=== PATIENT | male | born 1970 | race Caucasian/White ===

== ENCOUNTER 2020-06-06 12:12 | Emergency (ER) | payer OTHER ==
[~2020-06-06] VITALS: Ht 175.3 cm; Wt 89.1 kg
[2020-06-06] MEDS ORDERED: LORazepam 2 MG/ML VIAL IV STA (12:20)
[2020-06-06] MEDS ORDERED: LORazepam 2 MG/ML VIAL As Ordered ONE (12:28)
[2020-06-06] MEDS ORDERED: MULTIVITAMIN -ADULT INJECTION 10 ML, THIAMINE INJection 100 MG, FOLIC ACID 1 MG in NS 1... IV ONE (12:45)
[2020-06-06] MEDS ORDERED: OXAZEPAM 15 MG CAP PO ONE (12:45)
[2020-06-06] MEDS ORDERED: NS 1,000 ML IV ONE (12:45)
[2020-06-06 12:53] LABS: BASO % 0.9 % (0.0-1.0); EOS % 0.9 % (0.0-3.0); HEMATOCRIT 45.1 % (42.0-52.0); HEMOGLOBIN 15.1 g/dl (13.5-17.5); LYMPH # 0.7 10^3/uL (1.5-5.0); LYMPH % 19.2 % (24.0-44.0); MEAN CORPUSCULAR HEMOGLOBIN 31.1 pg (27.0-33.0); MEAN CORPUSCULAR HGB CONC 33.5 g/dl (32.0-36.5); MEAN CORPUSCULAR VOLUME 92.8 fl (80.0-96.0); MONO # 0.3 10^3/uL (0.0-0.8); MONO % 8.7 % (0.0-5.0); NEUTROPHILS # 2.4 10^3/uL (1.5-8.5); RED BLOOD COUNT 4.86 10^6/uL (4.30-6.10); WHITE BLOOD COUNT 3.4 10^3/uL (4.0-10.0)
[2020-06-06 13:01] LABS: INR 0.87
[2020-06-06 13:03] LABS: PLATELET COUNT, AUTOMATED 81 10^3/uL (150-450)
[2020-06-06 13:21] LABS: ALBUMIN 3.4 GM/DL (3.2-5.2); ALT/SGPT 207 U/L (12-78); BILIRUBIN,DIRECT 0.3 MG/DL (0.0-0.2); BILIRUBIN,TOTAL 0.4 MG/DL (0.2-1.0); BLOOD UREA NITROGEN 5 MG/DL (7-18); CALCIUM LEVEL 9.1 MG/DL (8.5-10.1); CARBON DIOXIDE LEVEL 25 MEQ/L (21-32); CHLORIDE LEVEL 103 MEQ/L (98-107); CREATININE FOR GFR 0.67 MG/DL (0.70-1.30); GLOMERULAR FILTRATION RATE > 60.0 (>60); GLUCOSE, FASTING 101 MG/DL (70-100); MAGNESIUM LEVEL 1.5 MG/DL (1.8-2.4); POTASSIUM SERUM 3.9 MEQ/L (3.5-5.1); SODIUM LEVEL 139 MEQ/L (136-145); TOTAL PROTEIN 6.9 GM/DL (6.4-8.2)
[2020-06-06] MEDS ORDERED: MAG SULF 1GM/100ML (MAG RUN) 1 GM in IV 1 EA IV ONE (13:30)
[2020-06-06 15:00] VITALS: BP 147/83
[2020-06-06] MEDS ORDERED: OXAZ30CA2 PO ×2 (15:03→15:20)
[2020-06-06] MEDS ORDERED: SLOWTAB2 PO (15:04)
== END 2020-06-06 15:27 | disposition home or self-care (01) ==
LOC: M ED 12:12
DX: F10.239 Alcohol dependence with withdrawal, unspecified (principal); E83.42 Hypomagnesemia
CPT/HCPCS: 36415; 80048; 80076; 83735; 85025; 85049; 85055; 85610; 96361; 96365; 96368; 96375; 99284; J2060; J3411; J3475

== ENCOUNTER 2021-02-09 10:37 | Inpatient (IN) | payer OTHER ==
[~2021-02-09] VITALS: Ht 170.2 cm; Wt 82.0 kg
[~2021-02-09 10:37] MED LIST: OXAZ30CA2 PO; SLOWTAB2 PO
[2021-02-09 11:49] LABS: BASO # 0.1 10^3/uL (0.0-0.2); BASO % 0.8 % (0.0-1.0); EOS % 0.2 % (0.0-3.0); HEMATOCRIT 45.5 % (42.0-52.0); HEMOGLOBIN 15.3 g/dl (13.5-17.5); LYMPH # 0.6 10^3/uL (1.5-5.0); LYMPH % 8.7 % (24.0-44.0); MEAN CORPUSCULAR HEMOGLOBIN 31.9 pg (27.0-33.0); MEAN CORPUSCULAR HGB CONC 33.6 g/dl (32.0-36.5); MEAN CORPUSCULAR VOLUME 94.8 fl (80.0-96.0); MONO # 0.5 10^3/uL (0.0-0.8); MONO % 7.9 % (2.0-8.0); NEUTROPHILS # 5.3 10^3/uL (1.5-8.5); NEUTROPHILS % 81.8 % (36.0-66.0); WHITE BLOOD COUNT 6.5 10^3/uL (4.0-10.0)
[2021-02-09 11:51] LABS: PLATELET COUNT, AUTOMATED 97 10^3/uL (150-450)
[2021-02-09 12:09] LABS: AMPHETAMINES LEVEL URINE NEGATIVE (NEGATIVE); BARBITURATES URINE NEGATIVE (NEGATIVE); BENZODIAZEPINES URINE NEGATIVE (NEGATIVE); CANNABINOIDS URINE NEGATIVE (NEGATIVE); COCAINE METABOLITE URINE NEGATIVE (NEGATIVE); METHADONE URINE NEGATIVE (NEGATIVE); OPIATES URINE NEGATIVE (NEGATIVE); PHENCYCLIDINE URINE NEGATIVE (NEGATIVE)
[2021-02-09 12:11] LABS: ALBUMIN 3.9 GM/DL (3.2-5.2); ALT/SGPT 127 U/L (12-78); BILIRUBIN,DIRECT 0.2 MG/DL (0.0-0.2); BILIRUBIN,TOTAL 0.6 MG/DL (0.2-1.0); BLOOD UREA NITROGEN 7 MG/DL (7-18); CALCIUM LEVEL 8.5 MG/DL (8.5-10.1); CARBON DIOXIDE LEVEL 25 MEQ/L (21-32); CHLORIDE LEVEL 104 MEQ/L (98-107); CREATININE FOR GFR 0.66 MG/DL (0.70-1.30); ETHYL ALCOHOL (ETHANOL) 0.084 % (0.000-0.010); GLOMERULAR FILTRATION RATE > 60.0 (>60); GLUCOSE, FASTING 96 MG/DL (70-100); POTASSIUM SERUM 3.9 MEQ/L (3.5-5.1); SODIUM LEVEL 137 MEQ/L (136-145); TOTAL PROTEIN 7.5 GM/DL (6.4-8.2)
[2021-02-09] MEDS ORDERED: NS 1,000 ML IV ONE (12:35)
[2021-02-09] MEDS ORDERED: OXAZEPAM 15 MG CAP PO ONE (12:35)
[2021-02-09] MEDS ORDERED: THIAMINE 100 MG TAB PO ONE (12:35)
[2021-02-09] MEDS ORDERED: LORazepam 2 MG/ML VIAL IV STA ×2 (15:16→18:09)
[2021-02-09 16:36] LABS: RSV AMPLIFICATION NEGATIVE (NEGATIVE)
[2021-02-09] MEDS ORDERED: LORazepam 2 MG TAB PO PRN (18:10)
[2021-02-09] MEDS ORDERED: MOM 30ML SUSPENSION UDC PO PRN (18:10)
[2021-02-09] MEDS ORDERED: ACETAMINOPHEN TAB 650MG DOSE (2X325MG) PO PRN (18:10)
[2021-02-09] MEDS ORDERED: MAALOX 30 ML SUSP *UDC PO PRN (18:10)
[2021-02-09] MEDS ORDERED: hydrALAZINE 20MG/ML 1ML VIAL (J0360 PER 20MG) IV STA (18:13)
--- NOTE | 2021-02-09 18:13 | HPEPDOC ---
[facility] Medical History & Physical Date of Admission Feb 09, 2021 Date of Service: Feb 09, 2021 History and Physical CHIEF COMPLAINT: Alcohol withdrawal HISTORY OF PRESENT ILLNESS: 42-year-old male with a history of alcohol use disorder, presents to [facility] ER with complaints of anxiety, tremulousness after stopping drinking for the past day. Patient reports typically drinking approximately 6-8 beers with an unspecified amount of hard liquor for the past 8-9 years. Patient has been trying to reduce the amount of alcohol he consumes over the past 5 days, checking approximately 1 can of beer per day as he had an upcoming court date today. However, patient developed significant tremulousness was concern for alcohol withdrawal. I decided to seek help in the emergency room. He reports a prior episode of withdrawal, which resulted in a seizure. He denies visual hallucination, auditory hallucination. He denies suicidal or h omicidal ideations. Patient received a dose of Ativan IV in the ER. Patient will be admitted to hospitalist service for management of acute alcohol withdrawal. PAST MEDICAL HISTORY: ETOH use disorder SOCIAL HISTORY: Etoh use disorder Denies smoking, denies illicit drug use FAMILY HISTORY: Mother - HTN ALLERGIES: Please see below. REVIEW OF SYSTEMS: 10 point ROS was conducted, relevant findings are noted in the HPI HOME MEDICATIONS: Please see below. PHYSICAL EXAMINATION: VITAL SIGNS: please see below General: NAD, comfortable HEENT: PERRLA, EOMI, sclerae clear Neck: supple, normal ROM, no JVD Respiratory: lungs CTAB, no wheeze, no rales, no crackles CVS: RRR, normal S1, S2, no murmurs Abdo: soft, no masses, no hepatosplenomegaly, BS+, no rebound tenderness Extremities: no edema, pulses 2+ MSK: no joint deformities, normal ROM Neuro: no focal neuro deficits, moving all 4 extremities, CN2-12 intact. Strength 5/5 in all 4 extremities. No nystagmus. Psych: calm, cooperative, AAO x 3, obviously tremulous and anxious LABORATORY DATA: See below. MICROBIOLOGY: Please see below. ASSESSMENT: 50-year-old male with a history of alcohol use disorder, presenting with acute alcohol withdrawal. Patient placed on Cipro protocol, admitted to hospitalist service for management of alcohol withdrawal. PLAN: #Acute etoh withdrawal - drinks 6-8 alcoholic drinks per day - previous hx of withdrawal, one episode of seizures - admit to M/S. Tele. - [facility] protocol - start patient on serax 20 mg TID PO - alcohol cessation resources - c/w thiamine, folate, b12 - seizure precautions. - start NS 125 cc/hr #Transaminitis - AST 195, ALT 127 - will repeat in AM, suspect 2/2 heavy etoh consumption #HTN - takes no meds - will start on amlodipine 5 mg daily - suspect BP elevated in part due to acute etoh withdrawal DVT ppx: heparin 5000 units q8h Vital Signs Vital Signs Date Time Temp Pulse Resp B/P (MAP) Pulse Ox O2 Delivery O2 Flow Rate FiO2 02/09/21 17:45 69 132/88 (103) 96 Room Air 02/09/21 16:30 18 02/09/21 10:47 99.0 Laboratory Data Labs 24H Laboratory Tests 2 02/09/21 11:18: Immature Granulocyte % (Auto) 0.6, Neutrophils (%) (Auto) 81.8H, Lymphocytes (%) (Auto) 8.7L, Monocytes (%) (Auto) 7.9, Eosinophils (%) (Auto) 0.2, Basophils (%) (Auto) 0.8, Neutrophils # (Auto) 5.3, Lymphocytes # (Auto) 0.6L, Monocytes # (Auto) 0.5, Eosinophils # (Auto) 0.0, Basophils # (Auto) 0.1, Nucleated Red Blood Cells % (auto) 0.0, Immature Platelet Fraction 3.8, Anion Gap 8, Glomerular Filtration Rate > 60.0, Calcium Level 8.5, Total Bilirubin 0.6, Direct Bilirubin 0.2, Aspartate Amino Transf (AST/SGOT) 195H, Alanine Aminotransferase (ALT/SGPT) 127H, Alkaline Phosphatase 103, Total Protein 7.5, Albumin 3.9, Albumin/Globulin Ratio 1.1, Urine Opiates Screen NEGATIVE, Urine Methadone Screen NEGATIVE, Urine Barbiturates Screen NEGATIVE, Urine Phencyclidine Screen NEGATIVE, Urine Amphetamines Screen NEGATIVE, Urine Benzodiazepines Screen NEGATIVE, Urine Cocaine Metabolite Screen NEGATIVE, Urine Cannabinoids Screen NEGATIVE, Ethyl Alcohol Level 0.084H 02/09/21 15:24: Coronavirus (COVID-19)(PCR) NEGATIVE, Influenza Type A (RT-PCR) NEGATIVE, In fluenza Type B (RT-PCR) NEGATIVE, Respiratory Syncytial Virus (PCR) NEGATIVE CBC/BMP Laboratory Tests 02/09/21 11:18 Home Medications No Active Prescriptions or Reported Meds Allergies Coded Allergies: No Known Allergies (Unverified , 06/06/20) KARL PEARL MD Feb 09, 2021 18:13
[2021-02-09] MEDS ORDERED: THIAMINE 100 MG TAB PO SCH (19:00)
[2021-02-09 22:05] VITALS: BP 131/76
[2021-02-09] MEDS ORDERED: SLF 3 ML SYR IV PRN (22:35)
[2021-02-09] MEDS: OXAZEPAM 10 MG CAP PO SCH (22:54)
[2021-02-09] MEDS: HEPARIN SOD (PORCINE) 5000UNITS/ML 1ML VIAL/SYRINGE SC SCH (22:55)
[2021-02-09] MEDS: THIAMINE 100 MG TAB PO SCH (22:55)
[2021-02-09] MEDS: DOCUSATE SODIUM 100MG CAPSULE PO SCH (22:55)
[2021-02-09] MEDS: FOLIC ACID 1 MG TAB PO SCH (22:59)
[2021-02-09] MEDS: MULTIVITAMINS/MINERALS THERAP 1 TAB PO SCH (23:00)
[2021-02-10] VITALS: BP_SYST 131; BP_SYST 138; BP_DIAS 75; BP_DIAS 76
[2021-02-10] MEDS ORDERED: NICOTINE 21MG/24HR 1 EA TRANSDERMAL TD PRN (00:20)
[2021-02-10 04:00] VITALS: BP_SYST 131; BP_SYST 140; BP_DIAS 76; BP_DIAS 79
[2021-02-10] MEDS ORDERED: SLF 3 ML SYR IV SCH (06:00)
[2021-02-10 06:24] LABS: BASO % 0.8 % (0.0-1.0); EOS # 0.1 10^3/uL (0.0-0.5); EOS % 1.8 % (0.0-3.0); HEMATOCRIT 45.1 % (42.0-52.0); LYMPH % 20.2 % (24.0-44.0); MEAN CORPUSCULAR HGB CONC 33.3 g/dl (32.0-36.5); MEAN CORPUSCULAR VOLUME 96.2 fl (80.0-96.0); MONO # 0.4 10^3/uL (0.0-0.8); MONO % 8.6 % (2.0-8.0); NEUTROPHILS # 3.4 10^3/uL (1.5-8.5); RED BLOOD COUNT 4.69 10^6/uL (4.30-6.10)
[2021-02-10] MEDS: HEPARIN SOD (PORCINE) 5000UNITS/ML 1ML VIAL/SYRINGE SC SCH (06:34)
[2021-02-10] MEDS: OXAZEPAM 10 MG CAP PO SCH (06:34)
[2021-02-10 06:59] LABS: ALT/SGPT 87 U/L (12-78); BLOOD UREA NITROGEN 7 MG/DL (7-18); CALCIUM LEVEL 8.3 MG/DL (8.5-10.1); CARBON DIOXIDE LEVEL 24 MEQ/L (21-32); CHLORIDE LEVEL 108 MEQ/L (98-107); CREATININE FOR GFR 0.54 MG/DL (0.70-1.30); GLOMERULAR FILTRATION RATE > 60.0 (>60); GLUCOSE, FASTING 74 MG/DL (70-100); MAGNESIUM LEVEL 2.2 MG/DL (1.8-2.4); SODIUM LEVEL 139 MEQ/L (136-145); TOTAL PROTEIN 6.6 GM/DL (6.4-8.2)
[2021-02-10 07:39] VITALS: BP 156/80
[2021-02-10 07:49] LABS: PLATELET COUNT, AUTOMATED 75 10^3/uL (150-450)
[2021-02-10] MEDS: THIAMINE 100 MG TAB PO SCH (09:09)
[2021-02-10] MEDS: DOCUSATE SODIUM 100MG CAPSULE PO SCH (09:09)
[2021-02-10] MEDS: MULTIVITAMINS/MINERALS THERAP 1 TAB PO SCH (09:09)
[2021-02-10] MEDS: FOLIC ACID 1 MG TAB PO SCH (09:09)
--- NOTE | 2021-02-10 11:26 | DS.PDOC ---
Discharge Summary General Date of Admission Feb 09, 2021 at 18:12 Date of Discharge 02/10/21 Discharge Summary PROCEDURES PERFORMED DURING STAY: [None]. ADMITTING DIAGNOSES: 1. . DISCHARGE DIAGNOSES: 1. . COMPLICATIONS/CHIEF COMPLAINT: Alcohol Withdrawl. HISTORY OF PRESENT ILLNESS: . HOSPITAL COURSE: . DISCHARGE MEDICATIONS: Please see below. ALLERGIES: Please see below. PHYSICAL EXAMINATION ON DISCHARGE: VITAL SIGNS: Please see below. GENERAL: HEENT: NECK: CARDIOVASCULAR EXAMINATION: RESPIRATORY EXAMINATION: ABDOMINAL EXAMINATION: EXTREMITIES: SKIN: NEUROLOGICAL EXAMINATION: PSYCHIATRIC EXAMINATION: LABORATORY DATA: Please see below. IMAGING: PROGNOSIS: ACTIVITY: [As tolerated]. DIET: DISCHARGE PLAN: DISPOSITION: . DISCHARGE INSTRUCTIONS: 1. . ITEMS TO FOLLOWUP ON ON OUTPATIENT: 1. . DISCHARGE CONDITION: [Stable]. TIME SPENT ON DISCHARGE: Greater than minutes. Vital Signs/I&Os Vital Signs Date Time Temp Pulse Resp B/P (MAP) Pulse Ox O2 Delivery O2 Flow Rate FiO2 02/10/21 07:39 99.3 60 18 156/80 (105) 94 Room Air I&O- Last 24 Hours up to 6 AM 02/10/21 06:00 Intake Total 1000 ml Balance 1000 ml Laboratory Data Labs 24H Laboratory Tests 2 02/09/21 15:24: Coronavirus (COVID-19)(PCR) NEGATIVE, Influenza Type A (RT-PCR) NEGATIVE, Influenza Type B (RT-PCR) NEGATIVE, Respiratory Syncytial Virus (PCR) NEGATIVE 02/10/21 05:53: Immature Granulocyte % (Auto) 0.6, Neutrophils (%) (Auto) 68.0H, Lymphocytes (%) (Auto) 20.2L, Monocytes (%) (Auto) 8.6H, Eosinophils (%) (Auto) 1.8, Basophils (%) (Auto) 0.8, Neutrophils # (Auto) 3.4, Lymphocytes # (Auto) 1.0L, Monocytes # (Auto) 0.4, Eosinophils # (Auto) 0.1, Basophils # (Auto) 0.0, Nucleated Red Blood Cells % (auto) 0.0, Anion Gap 7L, Glomerular Filtration Rate > 60.0, Calcium Level 8.3L, Magnesium Level 2.2, Total Bilirubin 1.0#, Aspartate Amino Transf (AST/SGOT) 105H, Alanine Aminotransferase (ALT/SGPT) 87H, Alkaline Phosphatase 80, Total Protein 6.6, Albumin 3.0#L, Albumin/Globulin Ratio 0.8 CBC/BMP Laboratory Tests 02/10/21 05:53 Discharge Medications No Active Prescriptions or Reported Meds Allergies Coded Allergies: No Known Allergies (Unverified , 06/06/20) KARL PEARL MD Feb 10, 2021 11:26
[2021-02-10] MEDS ORDERED: amLODIPine 5 MG TAB PO SCH (11:30)
[2021-02-10 11:34] VITALS: BP 130/80
[2021-02-10] MEDS ORDERED: FOLI1TAB11 PO (11:55)
[2021-02-10] MEDS ORDERED: THIA100TA PO (11:55)
[2021-02-10] MEDS ORDERED: VITMTA PO (11:55)
[2021-02-10] MEDS ORDERED: OXAZ10CA3 PO (11:55)
[2021-02-10] MEDS ORDERED: AMLO1TAB24 PO (11:55)
[2021-02-10 11:59] VITALS: BP 130/80
== END 2021-02-10 12:55 | disposition home or self-care (01) | DRG 775 ==
LOC: M ED 10:37 → M ED INP 18:09 → OBSVTOIN 18:12 → ENRESERV 18:45 → M PCU 21:55
PROVIDERS: ADMIT Family Medicine; ATTEND Family Medicine
DX: F10.239 Alcohol dependence with withdrawal, unspecified (principal); I10 Essential (primary) hypertension; R74.01 Elevation of levels of liver transaminase levels

== ENCOUNTER → 2022-04-12 | Outpatient (CLI) | payer OTHER ==
[~2022-04-12] MED LIST changes: +AMLO1TAB24 PO; +FOLI1TAB11 PO; +OXAZ10CA3 PO; +THIA100TA PO; +VITMTA PO
== END ==
LOC: M OUTALCOH 09:04
PROVIDERS: ATTEND Psychiatry & Neurology Psychiatry
DX: Z02.9 Encounter for administrative examinations, unspecified (principal)

== ENCOUNTER 2022-05-02 10:20 | Outpatient (RCR) | payer OTHER | END 2022-05-04 | LOC: M OUTALCOH 10:20 | PROVIDERS: ATTEND Psychiatry & Neurology Psychiatry | DX: F10.20 Alcohol dependence, uncomplicated (principal); Z72.0 Tobacco use ==

== ENCOUNTER 2022-05-30 12:39 | Outpatient (RCR) | payer OTHER | END 2022-06-03 | LOC: M OUTALCOH 12:39 | PROVIDERS: ATTEND Psychiatry & Neurology Psychiatry | DX: F10.20 Alcohol dependence, uncomplicated (principal); Z72.0 Tobacco use ==

== ENCOUNTER 2022-06-09 13:57 | Outpatient (RCR) | payer OTHER | END 2022-07-04 | LOC: M OUTALCOH 13:57 | PROVIDERS: ATTEND Psychiatry & Neurology Psychiatry | DX: F10.20 Alcohol dependence, uncomplicated (principal); Z72.0 Tobacco use ==

== ENCOUNTER → 2022-07-04 | Outpatient (RCR) | payer OTHER | LOC: M OUTALCOH 06-13 12:32 | PROVIDERS: ATTEND Psychiatry & Neurology Psychiatry | DX: F10.20 Alcohol dependence, uncomplicated (principal); Z72.0 Tobacco use ==

== ENCOUNTER 2022-07-18 11:01 | Outpatient (RCR) | payer OTHER | END 2022-08-03 | LOC: M OUTALCOH 11:01 | PROVIDERS: ATTEND Psychiatry & Neurology Psychiatry | DX: F10.20 Alcohol dependence, uncomplicated (principal); Z72.0 Tobacco use ==

== ENCOUNTER 2022-08-22 13:58 | Outpatient (RCR) | payer OTHER | END 2022-09-03 | LOC: M OUTALCOH 13:58 | PROVIDERS: ATTEND Psychiatry & Neurology Psychiatry | DX: F10.20 Alcohol dependence, uncomplicated (principal); Z72.0 Tobacco use ==

== ENCOUNTER 2022-10-03 16:00 | Outpatient (RCR) | payer OTHER | END 2022-10-04 | LOC: M OUTALCOH 16:00 | PROVIDERS: ATTEND Psychiatry & Neurology Psychiatry | DX: F10.20 Alcohol dependence, uncomplicated (principal); Z72.0 Tobacco use ==

== ENCOUNTER → 2024-01-17 | Outpatient (CLI) | payer OTHER | LOC: M OUTALCOH 08:31 | PROVIDERS: ATTEND Psychiatry & Neurology Psychiatry | DX: F10.20 Alcohol dependence, uncomplicated (principal); F17.200 Nicotine dependence, unspecified, uncomplicated ==

== ENCOUNTER → 2024-02-02 | Outpatient (RCR) | payer OTHER | LOC: M OUTALCOH 01-26 12:51 | PROVIDERS: ATTEND Psychiatry & Neurology Psychiatry | DX: F10.20 Alcohol dependence, uncomplicated (principal); F17.200 Nicotine dependence, unspecified, uncomplicated ==

== ENCOUNTER 2024-03-01 15:00 | Outpatient (RCR) | payer OTHER | END 2024-03-03 | LOC: M OUTALCOH 15:00 | PROVIDERS: ATTEND Psychiatry & Neurology Psychiatry | DX: F10.20 Alcohol dependence, uncomplicated (principal); F17.200 Nicotine dependence, unspecified, uncomplicated ==

== ENCOUNTER → 2024-04-03 | Outpatient (RCR) | payer OTHER | LOC: M OUTALCOH 03-06 14:47 | PROVIDERS: ATTEND Psychiatry & Neurology Psychiatry | DX: F10.20 Alcohol dependence, uncomplicated (principal); F17.200 Nicotine dependence, unspecified, uncomplicated ==

== ENCOUNTER 2024-04-29 14:51 | Outpatient (RCR) | payer OTHER | END 2024-05-04 | LOC: M OUTALCOH 14:51 | PROVIDERS: ATTEND Psychiatry & Neurology Psychiatry | DX: F10.20 Alcohol dependence, uncomplicated (principal); F17.200 Nicotine dependence, unspecified, uncomplicated ==

== ENCOUNTER → 2024-06-03 | Outpatient (RCR) | payer OTHER | LOC: M OUTALCOH 05-13 16:00 | PROVIDERS: ATTEND Psychiatry & Neurology Psychiatry | DX: F10.20 Alcohol dependence, uncomplicated (principal); F17.200 Nicotine dependence, unspecified, uncomplicated ==

== ENCOUNTER 2024-06-12 08:02 | Outpatient (RCR) | payer OTHER | END 2024-07-04 | LOC: M OUTALCOH 08:02 | PROVIDERS: ATTEND Psychiatry & Neurology Psychiatry | DX: F10.20 Alcohol dependence, uncomplicated (principal); F17.200 Nicotine dependence, unspecified, uncomplicated ==

== ENCOUNTER 2024-07-23 08:14 | Outpatient (RCR) | payer OTHER | END 2024-08-03 | LOC: M OUTALCOH 08:14 | PROVIDERS: ATTEND Psychiatry & Neurology Psychiatry | DX: F10.20 Alcohol dependence, uncomplicated (principal); F17.200 Nicotine dependence, unspecified, uncomplicated ==

== ENCOUNTER 2024-10-14 09:01 | Outpatient (RCR) | payer OTHER | END 2024-11-01 | LOC: M OUTALCOH 09:01 | PROVIDERS: ATTEND Psychiatry & Neurology Psychiatry | DX: F10.20 Alcohol dependence, uncomplicated (principal); F17.200 Nicotine dependence, unspecified, uncomplicated ==

== ENCOUNTER 2024-12-04 08:52 | Outpatient (RCR) | payer OTHER | END 2025-01-01 | LOC: M OUTALCOH 08:52 | PROVIDERS: ATTEND Psychiatry & Neurology Psychiatry | DX: F10.20 Alcohol dependence, uncomplicated (principal); F17.200 Nicotine dependence, unspecified, uncomplicated ==